=== PATIENT | male | born 1970 | race Hispanic/Latino ===

== ENCOUNTER 2016-11-12 07:51 | Emergency (ER) | payer MEDICAID ==
[2016-11-12 07:59] VITALS: BP 132/79; PULSE 71; RESP 16; TEMP 97.9; O2SAT 99; BMI 25.7
[2016-11-12 09:16] LABS: VENOUS BLOOD GAS PCO2 47 mmHg (40-60); VENOUS BLOOD PH 7.38 (7.32-7.43)
[2016-11-12 09:25] LABS: BASO # 0.1 K/uL (0.0-0.2); BASO % 0.8 % (0.0-2.0); EOS # 0.2 K/uL (0.0-0.7); EOS % 1.9 % (0.0-4.0); HEMATOCRIT 39.9 % (35.0-51.0); MEAN CELL VOLUME 84.6 fl (80.0-94.0); MEAN CORPUSCULAR HEMOGLOBIN 28.3 pg (27.0-31.0); MEAN CORPUSCULAR HGB CONC 33.5 g/dL (33.0-37.0); MEAN PLATELET VOLUME 8.2 fl (7.2-11.7); MONO # 0.9 K/uL (0.0-0.8); MONO % 8.7 % (0.0-10.0); NEUT # 7.2 K/uL (1.8-7.0); NEUT % 69.6 % (50.0-75.0); RED CELL DISTRIBUTION WIDTH 14.3 % (11.5-14.5); WHITE BLOOD COUNT 10.3 K/uL (4.8-10.8)
--- NOTE | 2016-11-12 09:27 | CP.PCM.CON ---
History of Present Illness - History of Present Illness History of Present Illness: Podiatry consult note for Dr. Olson 46 y/o male with PMHx of Hepatitis C, hx of skin cancer seen at bedside for painful blisters on the bottom of both feet. Pt states he was walking a lot for the last two days and developed these blisters. Pt admits that he has had similar blisters in the past and they previously drained pus and caused a lot of redness. He has taken antibiotics to treat the infection in the blisters in the past. Relating to this current problem, patient states he is in pain but has not noticed any redness, swelling, or creamy yellow discharge like he did previously. Pt admits to seeing a thin yellow fluid come out of the blisters yesterday. Pt denies any F/C/N/V/SOB. 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), 1/2 pack cigarettes/day, social EtOH Review of Systems - Review of Systems All systems: reviewed and no additional remarkable complaints except (per HPI) Past Patient History - Past Social History Smoking Status: Light Smoker < 10 Cigarettes Daily - CARDIAC Hx Hypercholesterolemia: Yes - HEMATOLOGICAL/ONCOLOGICAL Hx Cancer: Yes (skin Ca) Hx Hepatitis C: Yes - PSYCHIATRIC Hx Substance Use: Yes - SURGICAL HISTORY Hx Surgeries: Yes Other/Comment: skin excision of Ca - ANESTHESIA Hx Anesthesia: Yes Hx Anesthesia Reactions: No Meds Allergies/Adverse Reactions: Allergies Allergy/AdvReac Type Severity Reaction Status Date / Time No Known Allergies Allergy Verified 11/12/16 08:14 Physical Exam - Constitutional Appears: Well, Non-toxic, No Acute Distress - Extremities Exam Additional comments: Vasc: DP/PT pulses palpable 2/4 B/L. Temperature gradient warm to cool. CFT < 3 sec to all digits. No pedal edema noted Neuro: Protective sensation assessed via SWMF is grossly intact B/L Derm: Superficial skin blisters measuring approx 6cm x 4cm x superficial noted to plantar aspect of R forefoot and 5cm x 4cm x superficial to L plantar forefoot. Overlying skin of R foot blister is lifted at all edges except for medial border of blister with underlying healthy granular subcutaneous tissue. Roof remains intact to L plantar foot blister with proximal skin lifting noted at sulcus of digits. Additional superficial blisters noted to R plantar hallux and R plantar 5th digit with skin edges intact. Mild erythema noted to R plantar forefoot, minimal erythema noted to L plantar forefoot. No active drainage, no purulence, no malodor, no cellulitic changes. Ortho: Tenderness upon palpation of blistered digits and plantar forefeet B/L - Neurological Exam Neurological exam: Alert, Oriented x3 - Psychiatric Exam Psychiatric exam: Normal Affect, Normal Mood Results - Vital Signs Recent Vital Signs: Last Vital Signs Temp 97.9 F 11/12/16 07:58 Pulse 71 11/12/16 07:58 Resp 16 11/12/16 07:58 BP 132/79 11/12/16 07:58 Pulse Ox 99 11/12/16 07:58 - Labs Result Diagrams: 11/12/16 09:00 11/12/16 09:00 Labs: Laboratory Results - last 24 hr 11/12/16 08:39 pO2 33 VBG pH 7.38 VBG pCO2 47 VBG HCO3 25.6 VBG Total CO2 29.2 H VBG O2 Sat (Calc) 69.2 H VBG Base Excess 2.0 VBG Potassium 4.0 A-a O2 Difference 58.0 Sodium 133.0 Chloride 100.0 Glucose 100 Lactate 1.0 FiO2 21.0 Crit Value Called To Cookie sutton Crit Value Called By 15 Crit Value Read Back Y Blood Gas Notified Time 916 Venous Blood Potassium 4.0 Assessment & Plan - Assessment and Plan (Free Text) Assessment: 46 y/o male with painful bilateral plantar forefoot pressure blisters Plan: Pt seen by podiatry in ED Discussed plan in detail with attending Dr. Olson Labs and vitals reviewed- afebrile, WBC 10.3 Dressing B/L blister areas with betadine soaked gauze and wrapped B/L feet in [facility]SD ED dispensed B/L surgical shoes Pt to follow up at [facility] podiatry clinic Thank you for the consult
[2016-11-12 09:37] LABS: ALB/GLOB RATIO 1.3 (1.0-2.1); ALKALINE PHOSPHATASE 58 U/L (38-126); ALT/SGPT 105 U/L (21-72); AST/SGOT 113 U/L (17-59); BILIRUBIN,TOTAL 1.1 mg/dl (0.2-1.3); BLOOD UREA NITROGEN 15 mg/dl (9-20); CALCIUM 9.7 mg/dL (8.4-10.2); CARBON DIOXIDE 24 mmol/L (22-30); CHLORIDE 100 mmol/L (98-107); GFR AFRICAN-AMERICAN > 60; GLUCOSE,RANDOM 94 mg/dL (75-110); POTASSIUM 4.3 MMOL/L (3.6-5.0); SODIUM 135 mmol/l (132-148); TOTAL PROTEIN 7.6 G/DL (6.3-8.2)
[2016-11-12 10:08] LABS: PARTIAL THROMBOPLASTIN TIME 26.5 Seconds (25.6-37.1)
--- NOTE | 2016-11-12 10:21 | ED PDOC ---
Lower Extremity Pain/Injury Time Seen by Provider: 11/12/16 08:17 Chief Complaint (Nursing): Abnormal Skin Integrity Chief Complaint (Provider): Feet blisters History Per: Patient History/Exam Limitations: no limitations Onset/Duration Of Symptoms: Days (2) Additional Complaint(s): Patient is a 46 y/o male with a past medical history of hepatitis C, skin cancer , IVDA and coronary artery disease presenting to the emergency department for massive blisters on his feet (bilaterally) ongoing for two days. Reports walking excessively in the rain recently. Notes that he applied antibiotic treatment and gauze with some improvement of symptoms. Denies fever, trauma, or other complaints. PCP: Dr. Corley Past Medical History Reviewed: Historical Data, Nursing Documentation, Vital Signs Vital Signs: Last Vital Signs Temp 97.9 F 11/12/16 07:58 Pulse 71 11/12/16 07:58 Resp 16 11/12/16 07:58 BP 132/79 11/12/16 07:58 Pulse Ox 99 11/12/16 07:58 - Medical History PMH: Hypercholesterolemia Other PMH: Hepatitis C, Skin Cancer - Surgical History Surgical History: No Surg Hx - Family History Family History: States: CAD - Social History Current smoker - smoking cessation education provided: Yes Alcohol: Social Drugs: Opiates (heroin injections (last time on 11/11/16)) - Home Medications Home Medications: Ambulatory Orders Medication Instructions Recorded Cephalexin [cephalexin] 1 tab PO BID #14 cap 11/12/16 - Allergies Allergies/Adverse Reactions: Allergies Allergy/AdvReac Type Severity Reaction Status Date / Time No Known Allergies Allergy Verified 11/12/16 08:14 Review of Systems ROS Statement: Except As Marked, All Systems Reviewed And Found Negative Constitutional: Negative for: Fever, Other (trauma) Cardiovascular: Negative for: Chest Pain Respiratory: Negative for: Shortness of Breath Gastrointestinal: Negative for: Nausea, Vomiting Musculoskeletal: Positive for: Foot Pain (Large blisters on both feet) Physical Exam - Reviewed Nursing Documentation Reviewed: Yes Vital Signs Reviewed: Yes - Physical Exam Appears: Positive for: Well, No Acute Distress Head Exam: Positive for: ATRAUMATIC, NORMAL INSPECTION, NORMOCEPHALIC Skin: Positive for: Normal Color, Warm, Dry (track soto noted on arms) Eye Exam: Positive for: Normal appearance Neck: Positive for: Normal, Painless ROM, Supple Cardiovascular/Chest: Positive for: Regular Rate, Rhythm. Negative for: Murmur Respiratory: Positive for: Normal Breath Sounds. Negative for: Accessory Muscle Use, Respiratory Distress Pulses-Dorsalis Pedis (L): 2+ Pulses-Dorsalis Pedis (R): 2+ Pulses-Post. Tibialis (L): 2+ Pulses-Post. Tibialis (R): 2+ Gastrointestinal/Abdominal: Positive for: Normal Exam, Soft. Negative for: Tenderness Back: Positive for: Normal Inspection Extremity: Positive for: Other (Large peeling blisters with surrounding erythema at the bottom of both feet. Some odor to the feet. No drainage.) Neurologic/Psych: Positive for: Alert, Oriented (x3). Negative for: Motor/ Sensory Deficits - Laboratory Results Result Diagrams: 11/12/16 09:00 11/12/16 09:00 - ECG O2 Sat by Pulse Oximetry: 99 (RA) Pulse Ox Interpretation: Normal Medical Decision Making Medical Decision Making: Time: 09:30 Initial impression: Plantar blisters bilaterally Initial plan: Tetanus shot 0.5 ml IM Blood culture IV Insertion Podiatry consult Reevaluation 10:40 AM - Podiatry evaluated pt. Podiatry applied dressing and recommends d/c with post-op shoes and follow up in podiatry clinic this Wednesday. Podiatry gave good wound care instructions to the patient. Scribe Attestation: Documented by Zo Monteiro, acting as a scribe for Chuy Raygoza Jr, DO. Provider Scribe Attestation: All medical record entries made by the Scribe were at my direction and personally dictated by me. I have reviewed the chart and agree that the record accurately reflects my personal performance of the history, physical exam, medical decision making, and the department course for this patient. I have also personally directed, reviewed, and agree with the discharge instructions and disposition. Disposition - Clinical Impression Clinical Impression: Blister of plantar aspect of left foot, Blister of plantar aspect of right foot - Patient ED Disposition Is Patient to be Admitted: No - Disposition Referrals: Podiatry Clinic [Outside] Disposition: Routine/Home Disposition Time: 11:07 Condition: IMPROVED Additional Instructions: Mr. Mcelroy, thank you for letting us take care of you today. Return to the ER if any problems. Please go to the Podiatry clinic on Wednesday morning (call for an appointment). Take the medicine listed below as prescribed. Prescriptions: Cephalexin [cephalexin] 1 tab PO BID #14 cap Instructions: Blister (ED) Forms: [facility] (Honduran) Print Language: MOSOTHO - POA Present On Arrival: None
== END 2016-11-12 11:57 | disposition home or self-care (01) ==
LOC: H.ER 07:51
DX: L89.899 Pressure ulcer of other site, unspecified stage (principal); B19.20 Unspecified viral hepatitis C without hepatic coma; Z85.828 Personal history of other malignant neoplasm of skin